=== PATIENT | male | born 1985 | race Caucasian/White ===

== ENCOUNTER 2019-05-05 19:48 | Emergency (ER) | payer MEDICAID, OTHER ==
[~2019-05-05] VITALS: Ht 175.3 cm; Wt 59.0 kg
[~2019-05-05 19:48] MED LIST: CHLO25CA10 PO
[2019-05-05 19:51] VITALS: BP 108/84
== END 2019-05-05 20:38 | disposition home or self-care (01) ==
LOC: ER 19:48
DX: Z04.3 Encounter for examination and observation following other accident (principal); G89.29 Other chronic pain; F41.9 Anxiety disorder, unspecified; F15.90 Other stimulant use, unspecified, uncomplicated; F19.90 Other psychoactive substance use, unspecified, uncomplicated; Z56.0 Unemployment, unspecified; Z98.890 Other specified postprocedural states; Z79.899 Other long term (current) drug therapy; V09.9XXA Pedestrian injured in unspecified transport accident, initial encounter; Y93.02 Activity, running; Y92.89 Other specified places as the place of occurrence of the external cause; Y99.8 Other external cause status
CPT/HCPCS: 99283

== ENCOUNTER 2019-06-29 05:37 | Emergency (ER) | payer SELFPAY ==
[~2019-06-29] VITALS: Ht 175.3 cm; Wt 63.6 kg
[2019-06-29 05:39] VITALS: BP 135/78
[2019-06-29] MEDS ORDERED: LIDOcaine 1% 30ml preserv. free vial IJ ONE (05:55)
[2019-06-29] MEDS ORDERED: TETanus/Pertussis (Acell)/Diphther VAC/PF (Tdap-Adult) 0.5ml syringe IM ONE (05:55)
[2019-06-29] MEDS ORDERED: bacitracin 15gm ointment TP ONE (06:05)
[2019-06-29] MEDS ORDERED: CEPH-572 PO (06:31)
[2019-06-29] MEDS ORDERED: ACET-3067 PO (06:31)
[2019-06-29] MEDS ORDERED: ceFAZolin 1gm IM kit IM ONE (06:35)
== END 2019-06-29 07:18 | disposition home or self-care (01) ==
LOC: ER 05:38
DX: S62.522A Displaced fracture of distal phalanx of left thumb, initial encounter for closed fracture (principal); S61.012A Laceration without foreign body of left thumb without damage to nail, initial encounter; G43.909 Migraine, unspecified, not intractable, without status migrainosus; G89.29 Other chronic pain; F41.9 Anxiety disorder, unspecified; F15.90 Other stimulant use, unspecified, uncomplicated; Z98.890 Other specified postprocedural states; Z56.0 Unemployment, unspecified; Z79.899 Other long term (current) drug therapy; W22.8XXA Striking against or struck by other objects, initial encounter; Y93.89 Activity, other specified; Y92.89 Other specified places as the place of occurrence of the external cause; Y99.8 Other external cause status
CPT/HCPCS: 12001; 73140; 90471; 90715; 96372; 99283; J0690; J2001

== ENCOUNTER 2019-12-11 06:12 | Inpatient (IN) | payer MEDICAID ==
[~2019-12-11] VITALS: Ht 175.3 cm; Wt 66.0 kg
[2019-12-11] MEDS ORDERED: ketorolac tromethamine 15mg/ml inj. IV ONE (07:05)
[2019-12-11] MEDS ORDERED: morphine 4 MG/ML inj SYRINge IV PRN (07:05)
[2019-12-11] MEDS ORDERED: normal saline 1000ML IV soln IV ONE (07:05)
[2019-12-11] MEDS ORDERED: piperacillin/tazo 3.375gm/50ml 50 ML IV ONE (07:05)
[2019-12-11] MEDS ORDERED: ondansetron/PF 4mg/2ml inj IV ONE (07:05)
[2019-12-11] MEDS ORDERED: iohexol 300mg/ml 100ml inj. ONE (07:22)
[2019-12-11 07:46] LABS: BASOPHILS % (AUTO) 0.1 % (0-1); EOSINOPHILS # (AUTO) 0.2 X10'3 (0-0.9); EOSINOPHILS % (AUTO) 1.5 % (0-6); HEMATOCRIT 39.7 % (42.0-52.0); HEMOGLOBIN 13.1 g/dl (14.0-17.9); LYMPHOCYTES # (AUTO) 1.1 X10'3 (1.1-4.8); MEAN CORPUSCULAR HEMOGLOBIN 25.6 PG (27.0-31.0); MEAN CORPUSCULAR VOLUME 77.6 FL (78-98); MEAN PLATELET VOLUME 6.8 FL (7.4-10.4); MONOCYTES # (AUTO) 0.9 X10'3 (0-0.9); MONOCYTES % (AUTO) 7.9 % (2-12); NEUTROPHILS # (AUTO) 9.2 X10'3 (1.8-7.7); NEUTROPHILS % (AUTO) 80.5 % (42-75); PLATELET COUNT 368 X10'3 (140-440); RED BLOOD COUNT 5.12 X10'6 (4.70-6.10); RED CELL DISTRIBUTION WIDTH 13.8 % (11.5-14.5); WHITE BLOOD COUNT 11.5 X10'3 (4.5-11.0)
[2019-12-11 07:58] LABS: ALANINE AMINOTRANSFERASE 29 U/L (12-78); ALBUMIN 3.6 G/DL (3.4-5.0); ALBUMIN/GLOBULIN RATIO 0.8 (1.1-1.5); ALKALINE PHOSPHATASE 83 IU/L (46-116); ANION GAP 8 (8-16); ASPARTATE AMINO TRANSFERASE 25 U/L (10-37); BILIRUBIN,TOTAL 0.6 MG/DL (0.1-1.0); BLOOD UREA NITROGEN 13 MG/DL (7-18); BUN/CREATININE RATIO 17.3 (5.4-32.0); CALCIUM 8.9 MG/DL (8.5-10.1); CHLORIDE 101 MMOL/L (99-107); CREATININE 0.75 MG/DL (0.60-1.10); GLUCOSE 105 MG/DL (70-104); MAGNESIUM 1.9 MG/DL (1.5-2.4); POTASSIUM 4.2 MMOL/L (3.5-5.1); SODIUM 139 MMOL/L (135-145); TOTAL CARBON DIOXIDE 30.4 MMOL/L (24-32); eGFR > 90 ML/MIN
[2019-12-11] MEDS ORDERED: acetaminophen 650mg rectal suppository RC PRN (09:25)
[2019-12-11] MEDS ORDERED: HYDROcodone/acetaminophen 10/325mg tab PO PRN (09:25)
[2019-12-11] MEDS ORDERED: diphenhydrAMINE 25mg capsule PO PRN (09:25)
[2019-12-11] MEDS ORDERED: magnesium Cl slow-release 64mg tablet PO PRN (09:25)
[2019-12-11] MEDS ORDERED: HYDROcodone/acetaminophen 5mg/325mg tablet PO PRN (09:25)
[2019-12-11] MEDS ORDERED: potassium Cl 20 mEq SR tablet PO PRN ×2 (09:25)
[2019-12-11] MEDS ORDERED: magnesium 4gm in 100ml NS 100 ML IV PRN (09:25)
[2019-12-11] MEDS ORDERED: mag hydrox/Alum hydrox/simeth 30ml oral suspension PO PRN (09:25)
[2019-12-11] MEDS ORDERED: bisacodyl 10mg suppository rectal RC PRN (09:25)
[2019-12-11] MEDS ORDERED: potassium CL 10mEq/100ml bag 100 ML IV PRN ×2 (09:25)
[2019-12-11] MEDS ORDERED: magnesium hydroxide 30ml (MOM) UD suspension PO PRN (09:25)
[2019-12-11] MEDS ORDERED: ondansetron/PF 4mg/2ml inj IV PRN (09:25)
[2019-12-11] MEDS ORDERED: magnesium 2GM in 50ml NS 50 ML IV PRN (09:25)
[2019-12-11] MEDS ORDERED: acetaminophen 325mg tablet PO PRN ×3 (09:25→12:10)
[2019-12-11] MEDS ORDERED: morphine 2 MG/ML inj. syringe IV PRN ×2 (09:25)
[2019-12-11] MEDS ORDERED: VANCOMYCIN 1,500MG inj. 1,500 MG in normal saline 500ml IV soln 500 ML IV ONE (10:00)
[2019-12-11] MEDS: normal saline 1000ml 1,000 ML IV SCH ×2 (10:21→19:22)
--- NOTE | 2019-12-11 10:53 | NUR ---
Patient in room ED 15. I have received report from Millicent and had the opportunity to ask questions and assume patient care.
--- NOTE | 2019-12-11 11:00 | NUR ---
Patient to floor with belongings (only coat, shirt pants, shoes) via gurney. IV vancomycin in progress.
[2019-12-11 11:15] VITALS: BP 120/83
--- NOTE | 2019-12-11 11:15 | NUR ---
Pt arrived on the floor, dressed, able to ambulate to the bed. Pt had needles, drug paraphernalia, lighters on his person. Collected items and gave to security.
--- NOTE | 2019-12-11 11:30 | NUR ---
PAGER ID: [phone] MESSAGE: Demetrius, Mr. Chavez in [id number] indicates he's withdrawing, states he's very anxious, can I order ativan? Please advise Ellen [phone]
[2019-12-11] MEDS ORDERED: ibuprofen 200mg tablet PO PRN (12:10)
[2019-12-11] MEDS: piperacillin/tazo 3.375gm/50ml 50 ML IV SCH ×2 (15:49→23:16)
[2019-12-11] MEDS ORDERED: NO HOME MEDS (15:51)
[2019-12-11] MEDS: LORazepam 1 MG tablet PO PRN (17:21)
[2019-12-11 18:00] VITALS: BP 107/57
--- NOTE | 2019-12-11 18:21 | NUR ---
Problems reprioritized. Patient report given, questions answered & plan of care reviewed with Damari.
[2019-12-11] MEDS: K and/or MAG REPLACEMENT MC SCH (18:57)
[2019-12-11] MEDS: heparin, porcine 5000 units/ml vial SQ SCH (19:38)
[2019-12-11] MEDS: lactobacillus rhamnosus 10,000 MMU CELLS/CAPSULE PO SCH (19:38)
[2019-12-11] MEDS: vancomycin/NS 1 GM ADD-VANTAGE 250 ML IV SCH (19:49)
[2019-12-11 22:00] VITALS: BP 139/100
[2019-12-12] MEDS: vancomycin/NS 1 GM ADD-VANTAGE 250 ML IV SCH ×2 (02:00→10:24)
--- NOTE | 2019-12-12 03:46 | NUR ---
0200 Vanco dose on paper eMAR.
[2019-12-12] MEDS: LORazepam 1 MG tablet PO PRN (03:48)
[2019-12-12] MEDS: normal saline 1000ml 1,000 ML IV SCH (05:22)
[2019-12-12 05:59] LABS: BASOPHILS % (AUTO) 0.4 % (0-1); EOSINOPHILS % (AUTO) 0.2 % (0-6); HEMATOCRIT 36.6 % (42.0-52.0); LYMPHOCYTES # (AUTO) 1.3 X10'3 (1.1-4.8); LYMPHOCYTES % (AUTO) 11.1 % (21-51); MEAN CORPUSCULAR HEMOGLOBIN 25.7 PG (27.0-31.0); MEAN CORPUSCULAR HGB CONC 32.8 g/dL (33.0-36.5); MEAN CORPUSCULAR VOLUME 78.5 FL (78-98); MONOCYTES # (AUTO) 0.6 X10'3 (0-0.9); MONOCYTES % (AUTO) 5.5 % (2-12); NEUTROPHILS # (AUTO) 9.4 X10'3 (1.8-7.7); NEUTROPHILS % (AUTO) 82.8 % (42-75); PLATELET COUNT 359 X10'3 (140-440); RED BLOOD COUNT 4.67 X10'6 (4.70-6.10); RED CELL DISTRIBUTION WIDTH 13.7 % (11.5-14.5); WHITE BLOOD COUNT 11.3 X10'3 (4.5-11.0)
[2019-12-12 06:13] LABS: ALANINE AMINOTRANSFERASE 31 U/L (12-78); ALBUMIN 3.1 G/DL (3.4-5.0); ALBUMIN/GLOBULIN RATIO 0.8 (1.1-1.5); ALKALINE PHOSPHATASE 75 IU/L (46-116); ANION GAP 11 (8-16); ASPARTATE AMINO TRANSFERASE 30 U/L (10-37); BILIRUBIN,TOTAL 0.8 MG/DL (0.1-1.0); BLOOD UREA NITROGEN 11 MG/DL (7-18); BUN/CREATININE RATIO 13.9 (5.4-32.0); CALCIUM 8.9 MG/DL (8.5-10.1); CHLORIDE 105 MMOL/L (99-107); CREATININE 0.79 MG/DL (0.60-1.10); GLUCOSE 108 MG/DL (70-104); PHOSPHORUS 3.4 MG/DL (2.3-4.5); POTASSIUM 3.6 MMOL/L (3.5-5.1); SODIUM 142 MMOL/L (135-145); TOTAL CARBON DIOXIDE 26.3 MMOL/L (24-32); TOTAL PROTEIN 7.1 G/DL (6.4-8.2); eGFR > 90 ML/MIN
--- NOTE | 2019-12-12 06:17 | NUR ---
Patient in room [facility]TH[facility] 4013. I have received report from BRISA Wetzel and had the opportunity to ask questions and assume patient care.
--- NOTE | 2019-12-12 06:17 | NUR ---
REPORT GIVEN TO BRISA SIMS.
[2019-12-12 07:12] VITALS: BP 135/76
[2019-12-12] MEDS: piperacillin/tazo 3.375gm/50ml 50 ML IV SCH (07:42)
[2019-12-12] MEDS: lactobacillus rhamnosus 10,000 MMU CELLS/CAPSULE PO SCH (07:45)
[2019-12-12] MEDS: heparin, porcine 5000 units/ml vial SQ SCH (07:54)
[2019-12-12] MEDS: K and/or MAG REPLACEMENT MC SCH (07:54)
[2019-12-12 10:07] VITALS: BP 125/80
[2019-12-12] MEDS ORDERED: LACT1CAP26 PO (11:45)
[2019-12-12] MEDS ORDERED: LINE600T12 PO (11:45)
[2019-12-12] MEDS ORDERED: IBUP-1594 PO (11:45)
--- NOTE | 2019-12-12 12:38 | NUR ---
Patient alert and oriented. Discussed with patient discharge instructions and new prescriptions. Patient passive during teaching. Informed patient prescriptions sent to [facility] per his pharmacy of choice and given information for [facility] for PCP, encouraged patient stopping recreational drug use and patient states, "mm hmm that's cool. I just want to get out of here." Dr. Shamar Helms office information (address and phone number) given to patient for follow up. Patient DC'd with his personal belongings. Patient escorted out in wheelchair by [facility] staff.
[2019-12-12 14:03] LABS: HIV ANTIBODY 1&2 RAPID NON-REACTIVE (Neg)
[2019-12-12] MEDS ORDERED: VANCOMYCIN LEVEL IV ONE (17:30)
[2019-12-13 06:09] LABS: HBSAG SCREEN Negative (Negative); HEP A AB, IGM Negative (Negative); HEP B CORE AB, IGM Negative (Negative); HEPATITIS C ANTIBODY <0.1 s/co ratio (0.0-0.9)
== END 2019-12-12 12:40 | disposition home or self-care (01) | DRG 383 ==
LOC: ER 06:13 → ED HOLD 09:22 → ORTHO 4S 11:00
PROVIDERS: ADMIT Family Medicine; ATTEND Family Medicine
DX: L03.113 Cellulitis of right upper limb (principal); F11.20 Opioid dependence, uncomplicated; G89.29 Other chronic pain; F15.10 Other stimulant abuse, uncomplicated; F17.200 Nicotine dependence, unspecified, uncomplicated; I25.2 Old myocardial infarction; Z82.49 Family history of ischemic heart disease and other diseases of the circulatory system; Z86.73 Personal history of transient ischemic attack (TIA), and cerebral infarction without residual deficits; Z91.19 Patient's noncompliance with other medical treatment and regimen
CPT/HCPCS: 36415; 71045; 73201; 80053; 83605; 83735; 84100; 84145; 85025; 86703; 86705; 86706; 86709; 86803; 87040; 87081; 87340; G0378; J1644; J1885; J2405; J2543; J3370; J7030; J7040; Q9967

== ENCOUNTER 2023-02-04 13:59 | Outpatient (CLI) | payer MEDICAID ==
[~2023-02-04 13:59] MED LIST changes: -CHLO25CA10 PO; +IBUP-1594 PO; +LACT1CAP26 PO
== END 2023-02-04 23:59 | disposition home or self-care (01) ==
LOC: LAB 13:59
PROVIDERS: ATTEND General Practice
DX: F11.20 Opioid dependence, uncomplicated (principal)
CPT/HCPCS: 93005

== ENCOUNTER 2023-04-26 10:13 | Emergency (ER) | payer MEDICAID ==
[~2023-04-26] VITALS: Ht 175.3 cm; Wt 68.2 kg
[2023-04-26 11:48] VITALS: BP 133/87; PULSE 70; RESP 16; TEMP 98.4; O2SAT 98
== END 2023-04-26 12:40 ==
LOC: ER 10:13
DX: Z04.1 Encounter for examination and observation following transport accident (principal); G89.29 Other chronic pain; G43.909 Migraine, unspecified, not intractable, without status migrainosus; Z86.73 Personal history of transient ischemic attack (TIA), and cerebral infarction without residual deficits; F15.90 Other stimulant use, unspecified, uncomplicated; F11.90 Opioid use, unspecified, uncomplicated; Z59.00 Homelessness unspecified; Z79.899 Other long term (current) drug therapy
CPT/HCPCS: 99283